=== PATIENT | male | born 1970 | race Caucasian/White ===

== ENCOUNTER 2023-03-18 06:46 | Day surgery (SDC) | payer OTHER ==
[~2023-03-18] VITALS: Ht 188 cm; Wt 104.3 kg
[2023-03-18 10:21] VITALS: BP 114/80
== END 2023-03-18 09:45 | disposition home or self-care (01) | DRG 951 ==
LOC: ENDO 06:46
PROVIDERS: ATTEND Surgery
PROC: 0DBL8ZX Excision of Transverse Colon, Via Natural or Artificial Opening Endoscopic, Diagnostic (ICD-10-PCS; principal; 2023-03-18)
DX: Z12.11 Encounter for screening for malignant neoplasm of colon (principal); K63.5 Polyp of colon; K64.8 Other hemorrhoids